=== PATIENT | female | born 1990 | race Caucasian/White ===

== ENCOUNTER → 2022-02-13 | Outpatient (CLI) | payer OTHER, SELFPAY ==
[2022-02-13 16:22] LABS: Absolute Neutrophil Count 8.2 X10^3/uL (2.0-7.7); Basophil# 0.04 X10^3/uL; Basophil% 0.4 % (0-1); Eosinophil# 0.07 X10^3/uL; Eosinophils% 0.7 % (0-5); Hematocrit 35.5 % (37-47); Hemoglobin 12.1 g/dL (12.0-15.0); Lymphocyte % 18.7 % (19-41); Mean Corp Hgb Conc 34.1 g/dL (32-36); Mean Corpuscular Hgb 31.9 pg (27.0-32.0); Mean Corpuscular Volume 93.7 fL (81-99); Mean Platelet Vol. 11.3 fl (6.2-12.0); Monocyte# 0.32 X10^3/uL; NRBC Flagged by Analyzer 0 % (0-5); Neutrophil # 8.21 X10^3/uL (2.7-7.7); Neutrophil % 76.9 % (47-70); Platelet Count 288 K/mm3 (150-450); RBC Distribution Width CV 12.4 % (11.6-14.6); RBC Distribution Width SD 42.6 fl (35.1-43.9); Red Blood Count 3.79 M/mm3 (4.2-5.4); White Blood Count 10.7 K/mm3 (4.4-11.0)
[2022-02-13 17:01] LABS: ALB/GLOB Ratio 0.5 RATIO (0.9-2.4); AST(SGOT) 7 U/L (15-37); Alanine Aminotransfer ALT/SGPT 11 U/L (13-56); Albumin, Serum 2.4 g/dL (3.2-5.0); Alkaline Phosphatase 182 U/L (45-117); Anion Gap 7 (5-15); BUN 9 mg/dL (7-18); BUN/Creat Ratio 11.1 RATIO (10-20); Calcium,Total 8.9 mg/dL (8.5-10.1); Chloride 108 mmol/L (98-107); Creatinine, Serum 0.81 mg/dL (0.55-1.02); EST Glomerular Filtration Rate 87 mL/min (>60); Est Glom Filt Rate - Afr Amer 105 mL/min (>60); Globulin 4.5 g/dL (2.2-4.2); Glucose 129 mg/dL (74-106); Glucose Challenge Gest 1H 50g 129 mg/dL (70-140); LDH 155 U/L (84-246); Potassium 3.8 mmol/L (3.5-5.1); Protein, Total 6.9 g/dL (6.4-8.2); Sodium Level 138 mmol/L (136-145)
[2022-02-13 17:39] LABS: Creatinine, Urine (random) < 13.00 mg/dL (NO RANGE EST.); Protein, Urine (Random) < 6.0 mg/dL (<11.9)
[2022-02-16 09:51] LABS: HIV - WCH Non-Reactive (Nonreactive); Hepatitis B Surface Antigen Non-Reactive (Nonreactive); Hepatitis C Antibody Non-Reactive (Nonreactive); Rubella IgG Reactive (Nonreactive); Syphilis Antibodies Non-reactive
[2022-02-16 22:06] LABS: Chlamydia By Nucleic Acid AMP Negative (Negative)
[2022-02-16 22:12] LABS: Gonococcus By Nucleic Acid AMP Negative (Negative)
[2022-02-19 17:18] LABS: HPV APTIMA, High Risk Negative (Negative)
== END | disposition home or self-care (01) ==
LOC: WOBLAB 14:29
PROVIDERS: Visit Provider Obstetrics & Gynecology
DX: Z34.82 Encounter for supervision of other normal pregnancy, second trimester (principal); Z36.85 Encounter for antenatal screening for Streptococcus B
CPT/HCPCS: 36415; 80053; 82570; 82950; 83615; 84156; 85025; 86703; 86762; 86780; 86803; 87081; 87086; 87088; 87340; 87491; 87591; 87624; 88175; G0145

== ENCOUNTER 2022-02-18 11:37 | Inpatient (IN) | payer OTHER, SELFPAY ==
[2022-02-18] VITALS (82 sets, daily range): BP systolic 119–186; BP diastolic 57–99; PULSE 55–84; TEMP 36.6–36.9; O2SAT 96–100; BMI 40.6
[2022-02-18 13:08] LABS: Hematocrit 36.3 % (37-47); Hemoglobin 12.4 g/dL (12.0-15.0); Mean Corp Hgb Conc 34.2 g/dL (32-36); Mean Corpuscular Hgb 32.2 pg (27.0-32.0); Mean Corpuscular Volume 94.3 fL (81-99); Mean Platelet Vol. 11.1 fl (6.2-12.0); Platelet Count 276 K/mm3 (150-450); RBC Distribution Width CV 12.5 % (11.6-14.6); Red Blood Count 3.85 M/mm3 (4.2-5.4); White Blood Count 11.6 K/mm3 (4.4-11.0)
[2022-02-18 13:42] LABS: AST(SGOT) 11 U/L (15-37); Alanine Aminotransfer ALT/SGPT 13 U/L (13-56); Creatinine, Serum 0.76 mg/dL (0.55-1.02); EST Glomerular Filtration Rate 93 mL/min (>60); Est Glom Filt Rate - Afr Amer 112 mL/min (>60); Estimated Creatinine Clearance 84.05 ml/min; Uric Acid 5.1 mg/dL (2.6-6.0)
[2022-02-18 14:43] LABS: Protein, Urine (Random) < 6.0 mg/dL (<11.9)
[2022-02-18 14:44] LABS: Amphetamine Urine VISTA NEGATIVE (<1000 ng/mL); Barbiturate Urine VISTA NEGATIVE (< 200 ng/mL); Benzodiazepine Urine VISTA NEGATIVE (< 200 ng/mL); Cocaine Urine VISTA NEGATIVE (< 300 ng/mL); Ecstacy Urine VISTA NEGATIVE (< 500 ng/mL); Methadone Urine VISTA NEGATIVE (< 300 ng/mL); PCP Urine VISTA NEGATIVE (< 25 ng/mL); THC Urine VISTA NEGATIVE (< 50 ng/mL); Vista UDS pH Range 6
[2022-02-18] MEDS: miSOPROStol 25 MCG TABLET PO ×2 (15:59→20:00)
[2022-02-18] MEDS: Labetalol (Prefilled) 20 MG/4 ML IV ×3 (20:01→21:16)
[2022-02-18] MEDS: Lactated Ringers 1,000 ML 15 ML IV (20:01)
--- NOTE | 2022-02-18 20:21 | PCM.HP.BLA ---
History and Physical Date of Admission: 02/18/22 ACOG ANTEPARTUM RECORD - HISTORY AND PHYSICAL (02/18/2022) Name: MUSTAPHA REDDY History of this : This is a 31 year old [id number] presents at 38 wks + 2 days gestation for induction for gestational HTN. OB Physician: ERLINDA FERNANDEZ MD [place]'s Physician: ...................................................................... : 1990 Age: 31 Address: [address] [place] [address] Phone: (H) [phone] (O) [phone] Insurance Carrier: [facility] [id number] Emergency Contact: AKSHAT ABA [phone] ...................................................................... Final STEPHEN: 03/02/22 By Ultrasound: PARITY: (G-Total Pregnancies P-Fullterm,Premature,Induced AB,Spont AB, Ectopics, Multiple,Living) STEPHEN CONFIRMATION: By LMP: 06/01/22 Final STEPHEN: 03/02/22 OB PROBLEM LIST: gHTN Late care 37wks ALLERGIES: Azithromycin Hives and/or rash Sulfonamides Rash, high fever MEDICATIONS: none 28 mg-800 mcg tablet qd SOCIAL HISTORY: Smoking - denies smoking Alcohol Use - denies drinking Employer - [employer] Job Description - supervisor statement clerks Illicit Drug Use - denies use of street drugs Sexual Activity - single sexual partner Spouse-Sig Other Name - Michael Spouse-Sig Other Occupation - [employer] PRIOR DELIVERY HISTORY DEL DATE GEST LAB WT LB WT OZ TYPE ANES LABOR TX ANTEPARTUM FLOW CHART VISIT GE RTC FU F F OR U U DATE WK MD WKS HT PN HR M SS BP ED WT OR GL D EF ST __ ____ ___ __ __ ___ __ __ __ ___ __ __ __ ___ __ 04 February JMW 6 38 + + 152/98 sl 221 - - 03 February JM 1 38 V + + 144/94 0 221 - - ANTEPARTUM NOTE(S): Feb 18 2022: Good FM,Denies headache or Blurry Vision, to L/D Feb 17 2022: COMPREHENSIVE ANTEPARTUM NOTE(S): Feb 18 2022: Mustapha presents here today for PNV with elevated BP of 152/98 (R) arm sitting with large cuff. Denies headache or blurry vision at this time. Admits she can feel that it is up. After laying on (L) side x 12 minutes BP 144/80. AMBROSIO Feb 17 2022: H taken to OB. tg Feb 17 2022: Mustapha is 38w1d here for PNV good FM no edema. BP 144/94. Will recheck in 15 mins. would like cervical check. BR Feb 17 2022: 38 weeks, panel within normal limits. GBS negative. Patient again with elevated blood pressures nonsevere range, patient remains asymptomatic. HELLP labs last visit within normal limits. Educated patient on diagnosis of gestational hypertension and need for evaluation in labor and delivery and for induction of labor. Discussed risk for stroke DC and demise. Patient states under Feb 13 2022: Mustapha is here for missed menses visit. . LMP maybe sometime mid may 2021. Around 36 weeks? PAP,cultures, labs LARC today. States she is feeling baby move. No concerns or problems today. She is taking a vitamin. Glucola drank will draw at 2:28p. States she stopped smoking a couple of months ago. Positive UPT in office. BR first BP 152/98 second BP 148/96 REVIEW OF SYSTEMS: GENERAL - Denies fever, or chills SKIN - Denies rash, new skin lesions, or change in moles EYES - Denies blurred vision, or change in visual acuity EARS - Denies ear pain, or difficulty hearing NOSE - Denies nasal congestion, discharge, or bleeding MOUTH - Denies sore throat, or difficulty swallowing NECK - Denies pain or swelling RESPIRATORY - Denies shortness of breath, cough, wheezing CARDIOVASCULAR - Denies palpitations, chest pain, orthopnea, PND, peripheral edema, syncope or claudication GASTROINTESTINAL - Denies nausea, vomiting, diarrhea, constipation, Denies abdominal pain, melena and or bright red blood GENITOURINARY - Denies dysuria, frequency of urination, urgency, or hesitancy MUSCULOSKELETAL - Denies joint or muscle pain, or back pain NEUROLOGICAL - Denies localized numbness, weakness, or tingling PSYCHIATRIC - Denies depression, anxiety, substance abuse or suicide attempts ENDOCRINE - Denies heat or cold intolerance, weight loss or gain, increasing thirst HEMATO-IMMUNOLOGIC - Denies easy bruising, bleeding, oral ulcerations or recurrent infections GENETICS SCREENING: INFECTION HISTORY: MENSTRUAL HISTORY: *Menses Amount/Duration: 2 daysMenses Regularity: RegularFrequency: monthlyMenarche (Age Onset): 13* PAST SUMMARY: PARITY: 1. Total Pregnancies............ 1 2. Full Term Pregnancies........ 0 3. Premature.................... 0 4. Abortions - Induced.......... 0 5. Abortions - Spontaneous...... 0 6. Ectopics..................... 0 7. Multiple Births.............. 0 8. Living Children.............. 0 PHYSICAL EXAMINATION General Appearence: 31 yo female in no acute distress Vital Signs: AF, VSS Heart: RRR without rubs or gallops Lungs: CTA x 2 Breasts: deferred Abdomen: gravid Pelvis: Cervix: 1/50 Presentation: cephalic Station: -2 Fetus: Size: AGA Movement: present Heart: present LAB TEST(S) ORDERED SINCE:06/05/21 02/18/2022 URIC ACID 02/18/2022 UR DRG SCN W/RFLX AMPH CONFIRM 02/18/2022 TYPE AND SCREEN 02/18/2022 SERUM CREATININE AND GFR 02/18/2022 PROTEIN+CREATININE RATIO,URINE 02/18/2022 COVID 19 AG RAPID (RN COLLECT) 02/18/2022 CBC-COMPLETE BLOOD CNT NO DIFF 02/18/2022 AST(SGOT) 02/18/2022 ALANINE AMINOTRANSFERAS (SGPT) 02/16/2022 RULE OUT BETA STREP (GRP. B) 02/16/2022 RUBELLA IGG 02/16/2022 L509.8000 02/16/2022 HIV - [facility] 02/16/2022 HEPATITIS C ANTIBODY 02/16/2022 HEPATITIS B SURFACE ANTIGEN 02/16/2022 CHLAMYDIA/GC SHENA APTIMA 02/15/2022 URINE CULTURE 02/13/2022 PROTEIN+CREATININE RATIO,URINE 02/13/2022 T AND S-NO CHARGE W/PNP 02/13/2022 LDH 02/13/2022 GLUCOSE CHALLENGE GEST 1H 50G 02/13/2022 COMPREHENSIVE METABOLIC PROFIL 02/13/2022 CBC W/DIFF, AUTOMATED == ==== Order Observation Description Value Ref_Range A* Site == ==== COVID 19 AG RAP NOTE NOGUEIRA UR DRG SCN W/RF NOTE NOGUEIRA UR DRG SCN W/RF VISTA UDS PH 6 ML UR DRG SCN W/RF AMPHETAMINES NEGATIVE <1000 ng/mL ML UR DRG SCN W/RF BARBITIURATES NEGATIVE < 200 ng/mL ML UR DRG SCN W/RF BENZODIAZIPINE NEGATIVE < 200 ng/mL ML UR DRG SCN W/RF COCAINE NEGATIVE < 300 ng/mL ML UR DRG SCN W/RF ECSTACY NEGATIVE < 500 ng/mL ML UR DRG SCN W/RF METHADONE NEGATIVE < 300 ng/mL ML UR DRG SCN W/RF OPIATES NEGATIVE < 300 ng/mL ML UR DRG SCN W/RF PCP NEGATIVE < 25 ng/mL ML UR DRG SCN W/RF THC NEGATIVE < 50 ng/mL ML PROTEIN+CREATIN NOTE NOGUEIRA PROTEIN+CREATIN UR CREAT 30.30 mg/dL NO RANGE EST. ML PROTEIN+CREATIN PROTEIN,UR.RAN. < 6.0 mg/dL <11.9 ML PROTEIN+CREATIN PROT:CRE RATIO TNP mg/g CRE 0-200 ML Labor [facility]~[address] [place], [address]~ TYPE AND SCRE AB SCREEN GEL NEGATIVE ML ALANINE AMINOTR NOTE NOGUEIRA ALANINE AMINOTR ALT 13 U/L 13-56 ML AST(SGOT) NOTE NOGUEIRA AST(SGOT) AST 11 U/L 15-37 L ML URIC ACID NOTE NOGUEIRA URIC ACID URIC 5.1 mg/dL 2.6-6.0 ML The drugs N-Acetylcysteine and Metamizole may falsely depress this assay. SERUM CREATININ NOTE NOGUEIRA SERUM CREATININ CREAT,SERUM 0.76 mg/dL 0.55-1.02 ML The validity of the calculated GFR GFRAA in patients over 70 years has not been determined. Clinical correlation is essential. SERUM CREATININ EST GFR 93 mL/min >60 ML Non- GFR Calc SERUM CREATININ EST GFR - AA 112 mL/min >60 ML GFR Calc SERUM CREATININ ECRCL 84.05 ml/min ML CBC-COMPLETE BL NOTE NOGUEIRA CBC-COMPLETE BL WBC 11.6 K/mm3 4.4-11.0 H ML CBC-COMPLETE BL RBC 3.85 M/mm3 4.2-5.4 L ML CBC-COMPLETE BL HGB 12.4 g/dL 12.0-15.0 ML CBC-COMPLETE BL HCT 36.3 37-47 L ML CBC-COMPLETE BL MCV 94.3 fL 81-99 ML CBC-COMPLETE BL MCH 32.2 pg 27.0-32.0 H ML CBC-COMPLETE BL MCHC 34.2 g/dL 32-36 ML CBC-COMPLETE BL RDW CV 12.5 11.6-14.6 ML CBC-COMPLETE BL RDW SD 43.0 fl 35.1-43.9 ML CBC-COMPLETE BL PLT 276 K/mm3 150-450 ML CBC-COMPLETE BL MPV 11.1 fl 6.2-12.0 ML CHLAMYDIA/GC NA NOTE NOGUEIRA CHLAMYDIA/GC NA CHLAMY,NUC ACID Negative Negative LCI CHLAMYDIA/GC NA GC BY NUC ACID Negative Negative LCI Performed at: = - [facility] [id number] Economist Research Assistant: Elaine Hernandez MD, Phone: [phone] HEPATITIS B SEAN NOTE NOGUEIRA HEPATITIS B SEAN HEP B SURF AG Non-Reactive Nonreactive ML HEPATITIS C ANT NOTE NOGUEIRA HEPATITIS C ANT HEPATITIS C AB Non-Reactive Nonreactive ML Non Reactive: < 0.8 Equivocal: >/= 0.8 to < 1.0 Reactive: >/= 1.0 The CDC recommends that a reactive/equivocal HCV antibody result be followed up by the HCV Nucleic Acid Amplification test (720378) HIV - [facility] NOTE NOGUEIRA HIV - [facility] HIV Non-Reactive Nonreactive ML L509.8000 NOTE NOGUEIRA L509.8000 SYPHILIS ABS Non-reactive ML RUBELLA IGG NOTE NOGUEIRA RUBELLA IGG RUBELLA IGG Reactive Nonreactive ML Antibody Results Interpretation of Immune Status Non Reactive Presumed Non-Immune Equivocal Equivocal Reactive Presumed Immune RULE OUT BETA S NOTE NOGUEIRA URINE CULTURE NOTE NOGUEIRA PN N [facility]~[address] [place], [address]~ T AND AB SCREEN GEL NEGATIVE ML PROTEIN+CREATIN NOTE NOGUEIRA PROTEIN+CREATIN UR CREAT < 13.00 mg/dL NO RANGE EST. ML PROTEIN+CREATIN PROTEIN,UR.RAN. < 6.0 mg/dL <11.9 ML PROTEIN+CREATIN PROT:CRE RATIO TNP mg/g CRE 0-200 ML LDH NOTE NOGUEIRA LDH LDH 155 U/L 84-246 ML GLUCOSE CHALLEN NOTE NOGUEIRA GLUCOSE CHALLEN GLU GEST 50G 1H 129 mg/dL 70-140 ML COMPREHENSIVE M NOTE NOGUEIRA COMPREHENSIVE M GLU 129 mg/dL 74-106 H ML Fasting Glucose result greater than or equal to 126 mg/dL suggests DIABETES MELLITUS per A.D.A. criteria. COMPREHENSIVE M BUN 9 mg/dL 7-18 ML COMPREHENSIVE M CREAT,SERUM 0.81 mg/dL 0.55-1.02 ML The validity of the calculated GFR GFRAA in patients over 70 years has not been determined. Clinical correlation is essential. COMPREHENSIVE M EST GFR 87 mL/min >60 ML Non- GFR Calc COMPREHENSIVE M EST GFR - AA 105 mL/min >60 ML GFR Calc COMPREHENSIVE M BUN/CRE 11.1 RATIO 10-20 ML COMPREHENSIVE M T PROT 6.9 g/dL 6.4-8.2 ML COMPREHENSIVE M ALB 2.4 g/dL 3.2-5.0 L ML COMPREHENSIVE M GLOB 4.5 g/dL 2.2-4.2 H ML COMPREHENSIVE M A/G 0.5 RATIO 0.9-2.4 L ML COMPREHENSIVE M CA,TOTAL 8.9 mg/dL 8.5-10.1 ML COMPREHENSIVE M AST 7 U/L 15-37 L ML COMPREHENSIVE M ALK P 182 U/L 45-117 H ML COMPREHENSIVE M ALT 11 U/L 13-56 L ML COMPREHENSIVE M T BILI 0.30 mg/dL 0.20-1.00 ML For patients on eltrombopag therapy, use of Dimension [place] TBIL is not recommended. COMPREHENSIVE M NA 138 mmol/L 136-145 ML COMPREHENSIVE M POTASSIUM 3.8 mmol/L 3.5-5.1 ML COMPREHENSIVE M CL 108 mmol/L 98-107 H ML COMPREHENSIVE M CO2 23.0 mmol/L 21.0-32.0 ML COMPREHENSIVE M GAP 7 5-15 ML CBC W/DIFF, AUT NOTE NOGUEIRA CBC W/DIFF, AUT WBC 10.7 K/mm3 4.4-11.0 ML CBC W/DIFF, AUT RBC 3.79 M/mm3 4.2-5.4 L ML CBC W/DIFF, AUT HGB 12.1 g/dL 12.0-15.0 ML CBC W/DIFF, AUT HCT 35.5 37-47 L ML CBC W/DIFF, AUT MCV 93.7 fL 81-99 ML CBC W/DIFF, AUT MCH 31.9 pg 27.0-32.0 ML CBC W/DIFF, AUT MCHC 34.1 g/dL 32-36 ML CBC W/DIFF, AUT RDW CV 12.4 11.6-14.6 ML CBC W/DIFF, AUT RDW SD 42.6 fl 35.1-43.9 ML CBC W/DIFF, AUT PLT 288 K/mm3 150-450 ML CBC W/DIFF, AUT MPV 11.3 fl 6.2-12.0 ML CBC W/DIFF, AUT NEUT% 76.9 47-70 H ML CBC W/DIFF, AUT LY% 18.7 19-41 L ML CBC W/DIFF, AUT MONO% 3.0 0-10 ML CBC W/DIFF, AUT EO% 0.7 0-5 ML CBC W/DIFF, AUT BASO% 0.4 0-1 ML CBC W/DIFF, AUT IG% 0.300 0.0-0.9 ML IG% - Immature Granulocytes (promyelocytes, myelocytes and metamyelocytes) > 1% indicates that a LEFT SHIFT is Present. CBC W/DIFF, AUT ABSOLUTE NEUT 8.2 X10 3/uL 2.0-7.7 H ML CBC W/DIFF, AUT ABSOLUTE LYMPH 2.00 X10 3/uL 0.83-4.51 ML CBC W/DIFF, AUT NUCLEATED RBC 0 0-5 ML *Negative results from patients with symptom onset beyond five days should be treated as presumptive and confirmed by a molecular assay if clinically necessary. Negative results should not be used as the sole basis for treatment or for patient management. SARS-CoV-2 Ag Resp Ql IA.rapid *Positive results do not differentiate between SARS-CoV and SARS-CoV-2. If differentiation of the specific SARS virus is desired an additional sample and an additional order is required. SARS-CoV-2 Ag Resp Ql IA.rapid * This test has not been FDA cleared or approved; the test has been authorized by FDA under an Emergency Use Authorization (EAU) for use by laboratories certified under CLIA that meet the requirements to perform moderate, high, or waived complexity tests. SARS-CoV-2 Ag Resp Ql IA.rapid Normal Reference Range: Negative SARS-CoV-2 (COVID 19) Negative RAPID METHOD Quidel Radha Analyzer EDUIN B POSITIVE Group B Beta Streptococcus is not isolated. Below infection level. Mixed Gram Positive Organisms Nursery Count <1000 B POSITIVE == ==== Impression /Plan: 38 wks + 2 days intrauterine for cytotec induction for gestational HTN. Preparations in progress for delivery.
[2022-02-18] MEDS: Labetalol 100 MG Tablet PO ×2 (20:26→21:41)
[2022-02-19] VITALS (62 sets, daily range): BP systolic 93–197; BP diastolic 50–102; PULSE 54–80; TEMP 35.7–37.2; O2SAT 97–100
[2022-02-19] MEDS: miSOPROStol 25 MCG TABLET PO ×2 (00:05→04:33)
[2022-02-19] MEDS: Mag Hydrox/Al Hydrox/Simeth 30 ML UDC PO ×3 (01:28→23:35)
--- NOTE | 2022-02-19 08:16 | PCM.PN.OB ---
Subjective Subjective Cytotec overnight and cervix now 2 cm 50% effaced and -2 station. Artificial rupture membranes with scant fluid and internal uterine pressure catheter placed. We will start Pitocin if needed. So far able to control blood pressures with IV and p.o. labetalol. No neurologic symptoms or other PIH symptoms so magnesium sulfate has not been started. Objective Data Objective Data Vital Signs: Vital Signs Temp Pulse BP Pulse Ox 96.8 F L 64 142/91 H 98 02/19/22 04:32 02/19/22 08:13 02/19/22 08:13 02/19/22 04:33 Weight: 222 lb Body Mass Index (BMI) 40.6 Intake & Output: Intake and Output for Last 24 Hours 02/17/22 02/18/22 02/19/22 23:59 23:59 23:59 Intake Total Balance Lab / Micro Data Result Diagrams: 02/18/22 12:50 02/18/22 12:50 Labs: Laboratory Results - last 24 hr 02/18/22 12:50: WBC 11.6 H, RBC 3.85 L, Hgb 12.4, Hct 36.3 L, MCV 94.3, MCH 32.2 H, MCHC 34.2, RDW Std Deviation 43.0, RDW Coeff of Daisy 12.5, Plt Count 276, MPV 11.1 02/18/22 12:50: Creatinine 0.76, Estim Creat Clear Calc 84.05, Est GFR (MDRD) Af Amer 112, Est GFR (MDRD) Non-Af 93, Uric Acid 5.1, AST 11 L, ALT 13 02/18/22 12:50: Blood Type B POSITIVE, Antibody Screen NEGATIVE 02/18/22 14:15: U Random Total Protein < 6.0, Urine Creatinine 30.30, Protein/Creatinin Ratio TNP 02/18/22 14:15: Urine Opiates Screen NEGATIVE, Urine Methadone Screen NEGATIVE, Ur Barbiturates Screen NEGATIVE, Ur Phencyclidine Scrn NEGATIVE, Ur Amphetamines Screen NEGATIVE, MDMA (Ecstasy) Screen NEGATIVE, U Benzodiazepines Scrn NEGATIVE, Urine Cocaine Screen NEGATIVE, U Cannabinoids Screen NEGATIVE, Ur Drug Screen Comment Micro: Microbiology 02/18/22 15:45 Nasal Secretion SARS-CoV-2 Antigen (Rapid) - Final
[2022-02-19] MEDS: 0.9% Saline Lock 10 ML Syringe IV ×3 (08:24→13:47)
[2022-02-19] MEDS: Oxytocin 30 units/NS 500 ml 30 UNITS/500 ML IV.SOLN IV (08:53)
[2022-02-19] MEDS: Labetalol 100 MG Tablet PO ×2 (10:11→23:11)
[2022-02-19] MEDS: Labetalol (Prefilled) 20 MG/4 ML IV ×3 (11:59→13:47)
[2022-02-19] MEDS: Lactated Ringers 500 ML 999 ML IV ×3 (12:37→14:42)
[2022-02-19] MEDS: Ondansetron 4 MG/2 ML Vial IV (13:04)
[2022-02-19 13:46] LABS: Platelet Count 243 K/mm3 (150-450)
[2022-02-19] MEDS: fentaNYL-bupivacaine (epidural) 100 ML BAG EPIDURAL ×3 (14:08→23:52)
[2022-02-19] MEDS: Lactated Ringers 1,000 ML 200 ML IV ×2 (15:29→20:13)
[2022-02-19] MEDS: Acetaminophen 500 MG Tablet PO (20:11)
[2022-02-20] VITALS (42 sets, daily range): BP systolic 123–167; BP diastolic 58–102; PULSE 65–105; RESP 16–18; TEMP 36.2–37.4; O2SAT 94–100
[2022-02-20] MEDS: Lactated Ringers 1,000 ML 200 ML IV ×2 (00:10→05:59)
[2022-02-20] MEDS: Penicillin G 3,000,000 Units 50 ML 100 UNITS IV ×3 (03:24→11:54)
[2022-02-20] MEDS: fentaNYL-bupivacaine (epidural) 100 ML BAG EPIDURAL ×2 (05:22→11:54)
[2022-02-20] MEDS: Ondansetron 4 MG/2 ML Vial IV ×2 (06:24→12:11)
[2022-02-20] MEDS: Acetaminophen 500 MG Tablet PO (06:25)
--- NOTE | 2022-02-20 09:40 | PN.OBGYN_ITS ---
Subjective Subjective Patient has slowly progressed to complete and pushing as of 0900 a.m. Now with rupture of membranes approximately 25 hours. With epidural in place patient's blood pressures are in the normal range. Baby is at 0 to +1 station with some. Started on penicillin last evening. Some difficulty with pushing because ep idural is too dense so will decrease epidural dose. No maternal fever and heart tones continue to be reactive or reassuring. Continue to be hopeful for vaginal delivery. Objective Data Objective Data Vital Signs: Vital Signs Temp Pulse BP Pulse Ox 98.2 F 82 153/70 H 95 02/20/22 08:44 02/20/22 08:44 02/20/22 08:44 02/20/22 08:44 Weight: 222 lb Body Mass Index (BMI) 40.6 Intake & Output: Intake and Output for Last 24 Hours 02/18/22 02/19/22 02/20/22 23:59 23:59 23:59 Intake Total 4082.50 / 4082.50 1634.73 / 1634.73 Output Total 2400 / 2400 600 / 600 Balance 1682.50 / 1682.50 1034.73 / 1034.73 Lab / Micro Data Result Diagrams: 02/19/22 13:15 Labs: Laboratory Results - last 24 hr 02/19/22 13:15: Plt Count 243 Micro: Microbiology 02/18/22 15:45 Nasal Secretion SARS-CoV-2 Antigen (Rapid) - Final
[2022-02-20] MEDS: 0.9% Saline Lock 10 ML Syringe IV (09:56)
[2022-02-20] MEDS: Lactated Ringers 1,000 ML 999 ML IV (11:09)
--- NOTE | 2022-02-20 12:11 | CM.ED ---
LARY called [facility] phone and spoke to Michelle. There is a consult in for patient however, she has not delivered yet. Tiana TARIQ
[2022-02-20] MEDS: Oxytocin 30 units/NS 500 ml 30 UNITS/500 ML IV.SOLN 334 UNITS IV (13:23)
--- NOTE | 2022-02-20 13:40 | EX.PCM.OBRPT ---
Maternal Data Information Final STEPHEN: 03/02/22 Gestational age: 38+ Doctor Who Attended Delivery: Pablito Naidu Vaginal Delivery Maternal Presentation Maternal Presentation: Medically Indicated Induction (Gestational Hypertension) Type of Induction: Pitocin, Amniotomy and Cytotec Medical Reason for Induction: Gestational Hypertension Operative Information Date of Procedure: 02/20/22 Pre-Operative Diagnosis: Gestational Hypertension, IUP Post-Operative Diagnosis: Gestational Hypertension, IUP Surgery / Procedure Performed: Spontaneous Vaginal Delivery Type of Anesthesia: Epidural Estimated Blood Loss: 250 cc Fluids Replaced: Crystalloid Findings Description of Procedure: Spontaneous vaginal delivery of a viable female with Apgars of 7/9 from an occiput anterior presentation with thick meconium stained fluid and normal three-vessel meconium stained placenta. No episiotomy. First-degree midline laceration repaired with 3-0 Rapide suture under epidural. Sponges okay. Delivery physician: Emeterio Saul MD. Presentation: Vertex Amniotic Membrane Rupture Type: Artificial Amniotic Fluid Description: Thick meconium Placental Delivery Description: Spontaneous Placenta Disposition: [facility] Cord Vessel Description: 3 Vessels Cord Entanglement: None Cord Gases: ABG and VBG A Gender: Female (1 minute): 7 (5 minute): 9 Post Vaginal Delivery Medications Given After Delivery: IV Pitocin and IM Hemabate Episiotomy Description: None Laceration: Midline and 1st degree Complication Complications: None
[2022-02-20] MEDS: Labetalol 200 MG Tablet PO (14:40)
[2022-02-20] MEDS: Ibuprofen 600 MG Tablet PO (14:40)
[2022-02-20] MEDS: Loperamide 2 MG Capsule 4 MG PO (15:44)
--- NOTE | 2022-02-20 16:15 | NURSING ---
Called Dr. Saul to get order to check pt's BGT due to [employer] Interpreter having concerns with baby's BGT and temperature. Order received.
[2022-02-20 16:40] LABS: Bedside Glucose 132 mg/dL (74-106)
[2022-02-21] VITALS (14 sets, daily range): BP systolic 127–158; BP diastolic 64–99; PULSE 60–82; RESP 16–18; TEMP 36.1–36.9; O2SAT 96–98
[2022-02-21] MEDS: Labetalol 100 MG Tablet PO ×2 (09:16→11:37)
[2022-02-21] MEDS: Ibuprofen 600 MG Tablet PO (09:16)
--- NOTE | 2022-02-21 11:10 | PCM.PN.OB ---
Subjective Subjective Patient without complaints. Minimal vaginal bleeding. Bottle feeding. No PIH symptoms. Blood pressures marginally high on labetalol 100 mg twice daily. Objective Data Objective Data Vital Signs: Vital Signs Temp Pulse Resp BP Pulse Ox 98.3 F 76 18 157/74 H 97 02/21/22 08:30 02/21/22 08:45 02/21/22 08:30 02/21/22 08:30 02/21/22 08:30 Oxygen Delivery Method Room Air Weight: 222 lb Body Mass Index (BMI) 40.6 Intake & Output: Intake and Output for Last 24 Hours 02/19/22 02/20/22 02/21/22 23:59 23:59 23:59 Intake Total 4082.50 / 4082.50 3784.48 / 3784.48 Output Total 2400 / 2400 1300 / 1300 Balance 1682.50 / 1682.50 2484.48 / 2484.48 Lab / Micro Data Result Diagrams: 02/19/22 13:15 Labs: Laboratory Results - last 24 hr 02/20/22 16:33: POC Glucose 132 H Micro: Microbiology 02/18/22 15:45 Nasal Secretion SARS-CoV-2 Antigen (Rapid) - Final Assessment & Plan (1) Spontaneous vaginal delivery: PLAN: Doing well day #1 status post routine spontaneous vaginal delivery. Will increase labetalol to 200 mg twice daily. Anticipate discharge tomorrow.
--- NOTE | 2022-02-21 11:34 | CM.UR ---
Social Work Assessment Labor and Delivery Unit Date/Time of referral: 02/20/22, 18:41 Referred by: Dr. Emetreio Saul Date/Time of Intervention: 02/21/22, 11:15am Reason for referrals: late care, patient did not have any care until 2 weeks before delivery. Pt had sever hypertension when she came in to the unit which required hypertensive protocol. History obtained from: DEMETRIUS. SW asked FOB and MOB's mother to step out. Household composition: MOB, MOB's mother, MOB's sister, and now baby Indy. She and boyfriend Michael are together, and have been together for 6 years. They do not live together however. Patient's/ parent/guardian status: MOB and FOB are guardians of Indy. Medical History: MOB: gestational hypertension, late term care. Baby: Born 02/20/22, 13:15, [id number]. Apgars 7 and 9. Alumni Relations Manager: Dr. Gongora Educational status: MOB and FOB both graduated high school. As per MOB, FOB did some college. Financial Status: No concerns. MOB and FOB both work for [employer]. 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 She plans to return to work, her mother will care for the baby while she is working supplies: They have all needed supplies including car seat, bassinet, crib, clothing, diapers, bottles. MOB plans to bottle feed Childcare/Caregivers: MOB's mother, sister, aunt. FOB's family is supportive but in [place] Transportation: They have 2 vehicles Programs/Agencies involved: None Children's Services/Legal Issues: None Behavioral Health Issues: As per MOB, no substance abuse or mental health issues for FOB or MOB. Tox screen negative for mom and baby, meconium pending. MOB denies any safety concerns Family/Social Stressors: None identified Support Systems: MOB's family as outlined above, FOB's family from afar. LARY spoke w/MOB about late care. She states she called four places in October and nobody was taking new patients, so she gave up. She states she knew she was before October and had an appointment in September. She states however her truck broke down and then she got the flu. She said after that she felt fine and never followed up until a few weeks ago. Support Systems: Depression and anxiety/shake baby/Safe sleeping/[facility] Resources/List of Mental Health agencies: SW had MOB's mother and FOB come back into the room. SW gave MOB information on all of these topics, reviewed in particular information on depression. SW also gave MOB a list of resources in [facility] and pointed out to her the number for the 24 hour mental health crisis hotline if needed. SW offered to make a [facility] referral, MOB and FOB said they would self refer if needed. Assessment: SW met w/MOB in room, she answered SW questions and made good eye contact. However she did not elaborate on any answers. When FOB and MOB came back in, FOB tended to the baby and was changing the diaper, appropriate in care of baby. MOB seemed interested in the care of the baby. MOB's mother was on the phone the whole time SW was present. Plan: Baby to go home w/MOB. MOB to follow up w/pediatric appointment for baby. Meconium is pending, SW will follow for results. ROBERT Saldivar
--- NOTE | 2022-02-21 15:04 | NURSING ---
PT is CPR certified so Michael GARCIA watched CPR and denies any questions.
[2022-02-21] MEDS: Labetalol 200 MG Tablet PO (21:49)
[2022-02-22] VITALS (10 sets, daily range): BP systolic 134–190; BP diastolic 68–86; PULSE 64–82; RESP 16; TEMP 36.1–36.8; O2SAT 97–99
[2022-02-22] MEDS: NIFEdipine 30 MG Tablet PO (09:33)
[2022-02-22] MEDS: Labetalol 200 MG Tablet PO (09:33)
--- NOTE | 2022-02-22 11:09 | PCM.PN.OB ---
Subjective Subjective Patient without complaints. Bottlefeeding. Denies any PIH symptoms. Blood pressures edged up overnight so Procardia XL 30 mg added this AM. Objective Data Objective Data Vital Signs: Vital Signs Temp Pulse Resp BP Pulse Ox 98.1 F 64 16 185/83 H 97 02/22/22 08:44 02/22/22 09:08 02/22/22 09:07 02/22/22 09:08 02/22/22 08:43 Oxygen Delivery Method Room Air Weight: 222 lb Body Mass Index (BMI) 40.6 Intake & Output: Intake and Output for Last 24 Hours 02/20/22 02/21/22 02/22/22 23:59 23:59 23:59 Intake Total 3784.48 / 3784.48 Output Total 1300 / 1300 Balance 2484.48 / 2484.48 Lab / Micro Data Result Diagrams: 02/19/22 13:15 Micro: Microbiology 02/18/22 15:45 Nasal Secretion SARS-CoV-2 Antigen (Rapid) - Final Assessment & Plan (1) Spontaneous vaginal delivery: PLAN: Doing well day #2 status post spontaneous vaginal delivery and gestational hypertension. Will discharge to home on labetalol 200 mg twice daily and Procardia XL 30 mg daily. Will monitor for a few hours more today and if blood pressures continue to be modestly elevated will increase Procardia dose to 30 mg XL twice daily.
--- NOTE | 2022-02-22 11:12 | PCM.DC ---
Discharge Instructions Diet Discharge Diet: No restrictions Activity Discharge Activity: May Drive (In 1 to 2 days if not taking narcotic pain medication), May Shower and May Take a Tub Bath May resume sexual activity in: 4-6 weeks Additional Activity Instructions:: Nothing in the vagina for 4-6 weeks. You may return to work/school in 6 weeks. Dressing / Incision Call your doctor if you observe: Fever of 101 or Higher, Inability to urinate, Inability to have a bowel movement and Using more than 1 pad per hour Follow Up Care Please Follow Up With: Juan Carlos Sifuentes MD When: Call [phone] to make an appointment with your doctor in 1-2 and 6 weeks. Test Results: Test results from this visit will be discussed in further detail at your follow-up appointment, if applicable. Discharge Plan Admission Admit Date/Time: 02/18/22 11:37 Primary Reason for Your Visit: Vaginal Delivery Attending Provider: Emeterio Saul Discharge Orders/Prescriptions Prescriptions: New labetalol 200 mg tablet 200 mg PO BID Qty: 60 RF: 1 nifedipine [Procardia XL] 30 mg tablet extended release 24hr 30 mg PO DAILY Qty: 30 RF: 1 Vitamin 27 mg iron- 800 mcg tablet 1 tab PO DAILY Qty: 90 RF: 4 Disposition Disposition (needs filled in before D/C Order can be placed): Home, Self Care
--- NOTE | 2022-02-22 11:19 | DS.PCM_ITS ---
Providers Date of Admission: 02/18/22 Reason For Visit: VAGINAL DELIVERY Diagnosis Discharge Diagnosis (1) Spontaneous vaginal delivery: Status: Acute Code(s): O80 - Encounter for full-term uncomplicated delivery Plan: Routine follow-up in 6 weeks. (2) Gestational hypertension: Status: Acute Code(s): O13.9 - Gestational [-induced] hypertension without significant proteinuria, unspecified trimester Plan: Return in 1 to 2 weeks for blood pressure check in the office. Home on labetalol 200 mg twice daily and Procardia XL 30 mg daily. To check blood pressures at home daily. Medications at Discharge Home Medications labetalol 200 mg PO BID #60 tab 02/22/22 nifedipine [Procardia XL] 30 mg PO DAILY #30 tab 02/22/22 vit [id number] [ Vitamin] 1 tab PO DAILY #90 tab 02/22/22 Hospital Course Summary of Care Provided Hospital Course: Patient induced for gestational hypertension at 38+ weeks gestation. Minimal care with only 3 recent visits in the office. No PIH symptoms. After Cytotec, rupture of membranes, and Pitocin patient delivered spontaneously without complication. She was given IV and p.o. l abetalol during labor to control blood pressure and epidural control blood pressure as well. Patient had no PIH symptoms and blood pressures were well controlled with medications so magnesium sulfate was not started. P.o. blood pressures were necessary to control blood pressures and patient was discharged on these medications. Weight / BMI Weight Weight: 222 lb Body Mass Index (BMI) 40.6 ABG / Lab / Microbiology Data Result Diagrams: 02/19/22 13:15 Microbiology: Microbiology 02/18/22 15:45 Nasal Secretion SARS-CoV-2 Antigen (Rapid) - Final D/C Instructions Discharge Diet: No restrictions May resume sexual activity in: 4-6 weeks Additional Activity Instructions: Nothing in the vagina for 4-6 weeks. You may return to work/school in 6 weeks. Call your doctor if you observe: Fever of 101 or Higher, Inability to urinate, Inability to have a bowel movement and Using more than 1 pad per hour Please Follow Up With: Juan Carlos Sifuentes MD When: Call [phone] to make an appointment with your doctor in 1-2 and 6 weeks. Meaningful Use Info Meaningful Use Diagnoses (Choose all that apply): None applicable Discharge Plan Admission Admit Date/Time: 02/18/22 11:37 Primary Reason for Your Visit: Vaginal Delivery Attending Provider: Emeterio Saul Discharge Orders/Prescriptions Prescriptions: New labetalol 200 mg tablet 200 mg PO BID Qty: 60 RF: 1 nifedipine [Procardia XL] 30 mg tablet extended release 24hr 30 mg PO DAILY Qty: 30 RF: 1 Vitamin 27 mg iron- 800 mcg tablet 1 tab PO DAILY Qty: 90 RF: 4 Disposition Disposition (needs filled in before D/C Order can be placed): Home, Self Care
--- NOTE | 2022-02-26 15:10 | NURSING ---
On the follow up phone call mother doing well, baby bottle feeding 1.5-2 oz every 3 hours and she had slight headache but getting BP follow up through her OB and on BP medication.
== END 2022-02-22 12:35 | disposition home or self-care (01) | DRG 807 ==
PROVIDERS: Anesthesiology; Admitting Provider Obstetrics & Gynecology; Visit Provider Obstetrics & Gynecology
DX: O13.4 Gestational [pregnancy-induced] hypertension without significant proteinuria, complicating childbirth (principal); Z37.0 Single live birth; O70.0 First degree perineal laceration during delivery; O77.0 Labor and delivery complicated by meconium in amniotic fluid; Z3A.38 38 weeks gestation of pregnancy; Z79.899 Other long term (current) drug therapy
CPT/HCPCS: 59025; 59050; 80307; 82565; 82570; 82962; 84156; 84450; 84460; 84550; 85027; 85049; 86850; 86900; 86901; 87426; 99218; 99406; J7120; A4216; G0378; J2405

== ENCOUNTER → 2022-02-25 | Outpatient (CLI) | payer OTHER, SELFPAY ==
[2022-02-25 14:32] LABS: Mucous, Urine 0 SEEN /hpf (<or=2+)
[2022-02-25 15:52] LABS: Hemoglobin 10.8 g/dL (12.0-15.0); Mean Corp Hgb Conc 32.7 g/dL (32-36); Mean Corpuscular Hgb 31.7 pg (27.0-32.0); Mean Corpuscular Volume 96.8 fL (81-99); Mean Platelet Vol. 10.7 fl (6.2-12.0); Platelet Count 394 K/mm3 (150-450); RBC Distribution Width CV 12.2 % (11.6-14.6); RBC Distribution Width SD 43.1 fl (35.1-43.9); Red Blood Count 3.41 M/mm3 (4.2-5.4); White Blood Count 9.5 K/mm3 (4.4-11.0)
[2022-02-25 15:59] LABS: Color, Urine Yellow (Yellow); Glucose, Dipstick Normal (Normal); Ketone-Dipstick Negative (Negative); Leukocyte Esterase-Dipstick 500 /ul (Negative); Nitrite-Dipstick Negative (Negative); Occult Blood-Urine 250 /ul (Negative); Protein-Dipstick Negative (Negative); Urine Bilirubin Dipstick Negative (Negative); Urine Clarity Clear (Clear); Urine Urobilinogen Normal (Normal)
[2022-02-25 16:10] LABS: Protein, Urine (Random) 9.9 mg/dL (<11.9); Protein:Creat Ratio 205 mg/g CRE (0-200)
[2022-02-25 16:11] LABS: Bacteria 1+ /hpf (None Seen); Red Blood Cells-Urine 0-5 SEEN /hpf (0-5); Squamous Epithelial Cells - UA 0-5 SEEN /hpf (5-10); White Blood Cells 5-10 SEEN /hpf (0-5)
[2022-02-25 16:19] LABS: ALB/GLOB Ratio 0.6 RATIO (0.9-2.4); AST(SGOT) 10 U/L (15-37); Alanine Aminotransfer ALT/SGPT 24 U/L (13-56); Albumin, Serum 2.6 g/dL (3.2-5.0); Alkaline Phosphatase 119 U/L (45-117); Anion Gap 6 (5-15); BUN 13 mg/dL (7-18); Calcium,Total 9.1 mg/dL (8.5-10.1); Chloride 108 mmol/L (98-107); Creatinine, Serum 0.76 mg/dL (0.55-1.02); EST Glomerular Filtration Rate 93 mL/min (>60); Est Glom Filt Rate - Afr Amer 112 mL/min (>60); Globulin 4.7 g/dL (2.2-4.2); Glucose 68 mg/dL (74-106); LDH 178 U/L (84-246); Potassium 3.7 mmol/L (3.5-5.1); Protein, Total 7.3 g/dL (6.4-8.2); Sodium Level 138 mmol/L (136-145)
== END | disposition home or self-care (01) ==
LOC: WOBLAB 14:30
PROVIDERS: Visit Provider Obstetrics & Gynecology
DX: O16.5 Unspecified maternal hypertension, complicating the puerperium (principal)
CPT/HCPCS: 36415; 80053; 81001; 82570; 83615; 84156; 85027